=== PATIENT | male | born 1955 | race Caucasian/White ===

== ENCOUNTER → 2018-10-21 14:15 | Outpatient (CLI) | payer OTHER, SELFPAY ==
[2018-10-21 14:31] LABS: Add Manual Diff / Slide Review NO; Basophils Absolute Auto 0 /uL (0-100); Basophils Percent Auto 0.6 % (0-2); Eosinophils Absolute Auto 200 /uL (0-450); Eosinophils Percent Auto 2.4 % (2-4); Hematocrit 45.9 % (41-53); Hemoglobin 15.4 g/dL (13.5-17.5); Lymphocytes Absolute Auto 2100 /uL (1100-4500); Mean Corpuscular HGB Conc 33.5 % (30-36); Mean Corpuscular Hemoglobin 31.4 PG (26-34); Mean Corpuscular Volume 93.8 fL (80-100); Monocytes Absolute Auto 500 /uL (0-900); Monocytes Percent Auto 5.9 % (3-14); Neutrophils Absolute Auto 5500 /uL (1500-7000); Neutrophils Percent Auto 66.1 % (50-75); Platelet Count 247 X10^3/uL (150-400); Red Blood Cell Count 4.89 X10^6/uL (4.5-5.9); Red Cell Distribution Width 13.9 % (11.6-14.8); White Blood Cell Count 8.2 X10^3/uL (4.5-11.0)
[2018-10-21 14:44] LABS: Alanine Aminotransferase 31 IU/L (21-72); Albumin 4.9 g/dL (3.5-5.0); Albumin Globulin Ratio 1.4 (1.0-2.8); Alkaline Phosphatase 55 U/L (38-126); Aspartate Aminotransferase 23 IU/L (17-59); BUN Creatinine Ratio 17.3 (6-22); Bilirubin Total 0.7 mg/dL (0.2-1.3); Blood Urea Nitrogen 19 mg/dL (9-20); Calcium 9.5 mg/dL (8.4-10.2); Carbon Dioxide 30 mmol/L (22-32); Chloride 101 mmol/L (98-107); Cholesterol 198 mg/dL (140-199); Estimated Glomerular Filt Rate > 60.0 mL/min (>60); Globulin 3.4 g/dL (1.7-4.1); Glucose 101 mg/dL (80-110); HDL Cholesterol 49 mg/dL (40-60); HEMOLYSIS < 15 (0-50); LDL Cholesterol Calculated 131 mg/dL (<100); Potassium 4.3 mmol/L (3.4-5.1); Sodium 141 mmol/L (137-145); Total Protein 8.3 g/dL (6.3-8.2); Triglycerides 91 mg/dL (35-150)
[2018-10-21 16:46] LABS: Hep C Virus Ab w/Reflex Quant NEGATIVE s/c (NEGATIVE)
== END ==
PROVIDERS: PCP Family Medicine; Visit Provider Family Medicine
DX: Z11.59 Encounter for screening for other viral diseases (principal); Z12.5 Encounter for screening for malignant neoplasm of prostate; Z13.220 Encounter for screening for lipoid disorders
CPT/HCPCS: 36415; 80053; 80061; 84153; 85025; 86803

== ENCOUNTER → 2020-05-20 11:48 | Outpatient (CLI) | payer OTHER, SELFPAY ==
[2020-05-21 20:41] LABS: COVID19 Sendout Not Detected (Not Detect)
== END ==
PROVIDERS: PCP Family Medicine; Visit Provider Physician Assistant
DX: Z11.59 Encounter for screening for other viral diseases (principal)
CPT/HCPCS: 87635

== ENCOUNTER → 2020-12-28 14:59 | Outpatient (ROUT) | payer OTHER, SELFPAY ==
[2020-12-28 15:47] LABS: Add Manual Diff / Slide Review NO; Basophils Absolute Auto 0 /uL (0-100); Basophils Percent Auto 0.6 % (0-2); Eosinophils Absolute Auto 200 /uL (0-450); Eosinophils Percent Auto 2.3 % (2-4); Hematocrit 48.2 % (41-53); Hemoglobin 16.4 g/dL (13.5-17.5); Lymphocytes Absolute Auto 1900 /uL (1100-4500); Lymphocytes Percent Auto 24.8 % (25-40); Mean Corpuscular HGB Conc 34.1 % (30-36); Mean Corpuscular Hemoglobin 31.6 PG (26-34); Mean Corpuscular Volume 92.7 fL (80-100); Monocytes Absolute Auto 700 /uL (0-900); Monocytes Percent Auto 8.5 % (3-14); Neutrophils Absolute Auto 5000 /uL (1500-7000); Neutrophils Percent Auto 63.8 % (50-75); Platelet Count 251 X10^3/uL (150-400); Red Cell Distribution Width 13.9 % (11.6-14.8); White Blood Cell Count 7.8 X10^3/uL (4.5-11.0)
[2020-12-28 16:18] LABS: Alanine Aminotransferase 33 IU/L (<50); Albumin 4.9 g/dL (3.5-5.0); Albumin Globulin Ratio 1.5 (1.0-2.8); Alkaline Phosphatase 66 U/L (38-126); Aspartate Aminotransferase 32 IU/L (17-59); BUN Creatinine Ratio 20.4 (6-22); Bilirubin Total 0.9 mg/dL (0.2-1.3); Blood Urea Nitrogen 21 mg/dL (9-20); Calcium 10.3 mg/dL (8.4-10.2); Carbon Dioxide 28 mmol/L (22-32); Chloride 97 mmol/L (98-107); Cholesterol 238 mg/dL (140-199); Estimated Glomerular Filt Rate > 60.0 mL/min (>60); Globulin 3.3 g/dL (1.7-4.1); Glucose 107 mg/dL (80-110); HDL Cholesterol 60 mg/dL (40-60); HEMOLYSIS < 15 (0-50); LDL Cholesterol Calculated 153 mg/dL (<100); Potassium 4.3 mmol/L (3.4-5.1); Sodium 136 mmol/L (137-145); Total Protein 8.2 g/dL (6.3-8.2); Triglycerides 125 mg/dL (35-150)
[2020-12-28 16:51] LABS: Prostate Specific Antigen 3.84 ng/mL (0.10-4.00)
== END ==
PROVIDERS: Visit Provider Internal Medicine
DX: Z00.00 Encounter for general adult medical examination without abnormal findings (principal); R53.83 Other fatigue
CPT/HCPCS: 80053; 80061; 84153; 84443; 85025

== ENCOUNTER → 2022-07-29 11:01 | Outpatient (CLI) | payer OTHER, SELFPAY ==
[2022-07-29 14:06] LABS: COVID19 -Nasal RAPID Negative (Negative)
== END ==
PROVIDERS: PCP Internal Medicine; Visit Provider Surgery
DX: Z20.822 Contact with and (suspected) exposure to COVID-19 (principal); Z01.812 Encounter for preprocedural laboratory examination
CPT/HCPCS: 87635; C9803

== ENCOUNTER 2022-07-30 12:38 | Day surgery (SDC) | payer OTHER, SELFPAY ==
--- NOTE | 2022-07-30 | PATH_ITS ---
[facility] Accession Number: [id number] . 01 Material submitted: . PART A: colon - ASCENDING COLON POLYP X2 PART B: rectum - RECTUM POLYP . 01 Diagnosis: A. Ascending Colon, Polyp x2, Biopsy: Tubular adenoma. Sessile serrated adenoma. . B. Rectum, Polyp, Biopsy: Hyperplastic polyp. MRV 08/05/2022 1226 Local . 01 Electronically signed: . Analilia Post MD, Pathologist NPI- [id number] . 01 Gross description: . Part A: ASCENDING COLON POLYP X2: Received in formalin are 2 fragment(s) of colon, soft tissue measuring 0.6 x 0.2 x 0.1 cm to 0.4 x 0.2 x 0.2 cm submitted entirely in 1 cassette(s) Part B: RECTUM POLYP: Received in formalin are 3 fragment(s) of colon, soft tissue measuring 0.8 x 0.5 x 0.1 cm to 0.4 x 0.2 x 0.1 cm submitted entirely in 1 cassette(s) /CPE 08/03/2022 0716 Local . 01 Pathologist provided ICD-10: D12.2 . 01 CPT . 807086, 820607 Specimen Comment: A courtesy copy of this report has been sent to [phone] Performed at: 01 [facility] [address] [place] [address], [place], [place] [id number] MD Femi Lan MD Phone: [phone]
[2022-07-30] MEDS: SODIUM CHLORIDE 0.9% 1,000 ML 150 ML IV (12:47)
[2022-07-30 13:01] VITALS: BP 128/78; PULSE 70; RESP 16; TEMP 36.3; O2SAT 97; BMI 23.7
--- NOTE | 2022-07-30 13:30 | PM.HP.1 ---
History of Present Illness History of Present Illness Date Patient Seen: 07/30/22 Time Patient Seen: 13:30 Chief complaint: VAC Narrative: The patient presents for colorectal screening. They have never had any previous examination for such. Brother has a history of ulcerative colitis and colon cancer. On further history denies any recent gastrointestinal symptoms. No nausea, vomiting, abdominal pain, loss of appetite, unexplained weight loss, change in bowel habits, diarrhea, constipation, melena, hematochezia, or bright red blood per rectum. Patient History Medical History (Updated 07/30/22 @ 13:31 by Aydin Coe MD) Achilles tendon tear Left shoulder pain Surgical History Previous back surgery Family & Social History Family History Grandfather CAD (coronary artery disease) Grandfather CAD (coronary artery disease) Brother No problems noted. Social History: household members spouse lives independently Yes Tobacco & Substance use: Smoking Status Never smoker alcohol intake current alcohol intake frequency a few times a month Meds Home Medications and Allergies Home Medications Medication Instructions Recorded Confirmed Type No Known Home Medications 07/30/22 07/30/22 History Allergies Allergy/AdvReac Type Severity Reaction Status Date / Time No Known Allergies Allergy Uncoded 07/30/22 12:48 Exam Vital Signs (past 8 hours): - 07/30/22 13:01 Temperature 97.4 F L Pulse Rate 70 Respiratory Rate 16 Blood Pressure 128/78 Pulse Oximetry 97 Oxygen Delivery Method Room Air Oxygen Delivery Method Room Air Narrative Exam Narrative: General adult male alert oriented no acute distress Chest nonlabored respiration Extremities warm well perfused Assessment & Plan Assessment and plan (1) Screening for colon cancer: Status: Acute Assessment & Plan narrative: The patient requires colorectal screening and colonoscopy is recommended. Technical details were discussed. Risks, benefits, alternatives explained. Risks including but not limited to myocardial infarction, aspiration, bleeding, pain, missed lesion, incomplete examination, need for further radiographic studies, colonic perforation, and need for major abdominal surgery were discussed. All questions were answered to their satisfaction, and they are in agreement with this plan. Time Spent With Patient Critical Care time: I spent a total of [] minutes of critical care time on this patient's care today; this time is exclusive of procedural time.
--- NOTE | 2022-07-30 13:59 | PM.OP.COLON ---
Operative Date/Time/Diagnoses Date of procedure: 07/30/22 Time of procedure: 13:59 Pre-op diagnosis: Family history of colon cancer Post-op diagnosis: same Procedure & Clinicians Study performed: Colonoscopy Same procedure as scheduled: Yes Indications: Family history of colon cancer Procedure Notes Procedure in detail: Medications: Conscious sedation using 8mg IV midazolam and 150mcg IV of fentanyl The history and physical was performed/updated and the patient is ASA class is 1. The procedure was discussed in detail with the patient. Potential risks complications including infection, bleeding, missed diagnosis, perforation, need for surgery, and were explained. Their questions were answered and informed consent was obtained. Patient was brought to the procedure room and placed standard monitoring equipment. The patient's vital signs were monitored continuously throughout the entire procedure. Prior to starting time-out was performed. The patient was placed in the left lateral recumbent position. Procedural sedation was administered. Examination began with a thorough inspection of the perianal area there was no evidence of fissures, fistulae, external hemorrhoids or cutaneous malignancy. The colonoscopy scope was then placed into the anal canal and was advanced to the cecum, which was identified by the ileocecal valve, the appendiceal orifice and the confluence of the taenia. The scope was then slowly withdrawn examining colon thoroughly in all directions, irrigating it of any residual stool. FINDINGS 1. Ascending colon-5 mm polyps x 2 removed with cold snare 2. Rectum 3 mm polyps removed with cold snare The patient tolerated the procedure well. They will be discharged once criteria are met. The prep was of good/excellent quality. The withdrawl time was 13 minutes. The sedation time was 30minutes. Specimen(s): other (ascending polyps x 2, rectal polyp ) Complications: none Impression: colonic polyps Post-procedure Recommendations: Will call with biopsy results Disposition: same day surgery
[2022-07-30] MEDS: MIDAZOLAM 5 MG/5 ML VIAL 8 MG IV (14:23)
[2022-07-30] MEDS: fentaNYL 100 MCG/2 ML INJ 150 MCG IV (14:23)
[2022-07-30 14:46] VITALS: BP 124/68; PULSE 68; RESP 13; TEMP 36.4; O2SAT 95
[2022-07-30 14:51] VITALS: BP 109/63; PULSE 66; RESP 13; O2SAT 96
[2022-07-30 14:56] VITALS: BP 126/62; PULSE 67; RESP 15; O2SAT 96
[2022-07-30 15:02] VITALS: BP 115/67; PULSE 65; RESP 16; TEMP 36.6; O2SAT 97
== END 2022-07-30 15:25 | disposition home or self-care (01) ==
PROVIDERS: PCP Internal Medicine; Referring Provider Surgery; Visit Provider Surgery
PROC: 0DJD8ZZ Inspection of Lower Intestinal Tract, Via Natural or Artificial Opening Endoscopic (ICD-10-PCS; CPT 45378; principal; 2022-07-30 13:45)
DX: Z12.11 Encounter for screening for malignant neoplasm of colon (principal); Z80.0 Family history of malignant neoplasm of digestive organs; D12.2 Benign neoplasm of ascending colon; K62.1 Rectal polyp
CPT/HCPCS: 45385; 99152; 99153; J2250; J3010

== ENCOUNTER → 2022-08-09 14:09 | Outpatient (CLI) | payer OTHER, SELFPAY ==
[2022-08-09 15:41] LABS: Hematocrit 43.7 % (41-53); Mean Corpuscular HGB Conc 34.2 % (30-36); Mean Corpuscular Volume 90.7 fL (80-100); Platelet Count 221 X10^3/uL (150-400); Red Blood Cell Count 4.82 X10^6/uL (4.5-5.9); Red Cell Distribution Width 13.9 % (11.6-14.8); White Blood Cell Count 7.5 X10^3/uL (4.5-11.0)
[2022-08-09 16:01] LABS: Alanine Aminotransferase 33 IU/L (<50); Albumin 4.3 g/dL (3.5-5.0); Albumin Globulin Ratio 1.4 (1.0-2.8); Alkaline Phosphatase 58 U/L (38-126); Aspartate Aminotransferase 27 IU/L (17-59); BUN Creatinine Ratio 15.5 (6-22); Bilirubin Total 0.7 mg/dL (0.2-1.3); Blood Urea Nitrogen 16 mg/dL (9-20); Calcium 9.4 mg/dL (8.4-10.2); Carbon Dioxide 34 mmol/L (22-32); Chloride 98 mmol/L (98-107); Cholesterol 226 mg/dL (140-199); Estimated Glomerular Filt Rate > 60 mL/min (>60); Globulin 3.1 g/dL (1.7-4.1); Glucose 94 mg/dL (80-110); HDL Cholesterol 53 mg/dL (40-60); HEMOLYSIS < 15 (0-50); LDL Cholesterol Calculated 153 mg/dL (<100); Potassium 5.5 mmol/L (3.4-5.1); Sodium 138 mmol/L (137-145); Total Protein 7.4 g/dL (6.3-8.2); Triglycerides 101 mg/dL (35-150)
[2022-08-09 16:28] LABS: TSH w/ Reflex to FT4 1.23 uIU/mL (0.47-4.68)
[2022-08-09 16:30] LABS: Prostate Specific Antigen 3.77 ng/mL (0.10-4.00)
== END ==
PROVIDERS: PCP Internal Medicine; Referring Provider Internal Medicine; Visit Provider Internal Medicine
DX: Z00.00 Encounter for general adult medical examination without abnormal findings (principal); E78.2 Mixed hyperlipidemia
CPT/HCPCS: 36415; 80053; 80061; 84153; 84443; 85027

== ENCOUNTER 2024-11-08 20:19 | Emergency (ER) | payer OTHER, SELFPAY ==
[2024-11-08 20:23] VITALS: BP 159/73; PULSE 70; RESP 18; TEMP 37.2; O2SAT 96; BMI 25.0
== END 2024-11-08 20:45 | disposition left against medical advice (07) ==
PROVIDERS: Emergency Provider Emergency Medicine; PCP Internal Medicine
DX: H53.8 Other visual disturbances (principal)
CPT/HCPCS: 99281

== ENCOUNTER → 2025-09-06 15:45 | Outpatient (CLI) | payer MEDICARE, OTHER, SELFPAY ==
[2025-09-06 17:10] LABS: Hematocrit 44.5 % (41-53); Hemoglobin 15.0 g/dL (13.5-17.5); Mean Corpuscular HGB Conc 33.9 % (30-36); Mean Corpuscular Hemoglobin 31.1 PG (26-34); Mean Corpuscular Volume 92.0 fL (80-100); Platelet Count 219 X10^3/uL (150-400)
[2025-09-06 17:37] LABS: Alanine Aminotransferase 33 IU/L (<50); Albumin 4.4 g/dL (3.5-5.0); Albumin Globulin Ratio 1.5 (1.0-2.8); Alkaline Phosphatase 67 U/L (38-126); Blood Urea Nitrogen 18 mg/dL (9-20); Calcium 9.5 mg/dL (8.4-10.2); Carbon Dioxide 29 mmol/L (22-32); Chloride 102 mmol/L (98-107); Cholesterol 173 mg/dL (140-199); Estimated Glomerular Filt Rate > 60 mL/min (>60); Globulin 2.9 g/dL (1.7-4.1); Glucose 100 mg/dL (70-99); HDL Cholesterol 51 mg/dL (40-60); HEMOLYSIS < 15 (0-50); Potassium 4.4 mmol/L (3.4-5.1); Sodium 138 mmol/L (137-145); Total Protein 7.3 g/dL (6.3-8.2); Triglycerides 201 mg/dL (35-150)
[2025-09-06 18:08] LABS: Prostate Specific Antigen 4.49 ng/mL (0.10-4.00); TSH w/ Reflex to FT4 1.97 uIU/mL (0.47-4.68)
== END ==
PROVIDERS: PCP Internal Medicine; Referring Provider Internal Medicine; Visit Provider Internal Medicine
DX: E78.2 Mixed hyperlipidemia (principal); N40.1 Benign prostatic hyperplasia with lower urinary tract symptoms; N13.8 Other obstructive and reflux uropathy; R53.83 Other fatigue
CPT/HCPCS: 36415; 80053; 80061; 84153; 84443; 85027

== ENCOUNTER → 2025-09-16 18:49 | Outpatient (CLI) | payer MEDICARE, OTHER, SELFPAY ==
--- NOTE | 2025-09-16 18:51 | DI.MRI.S_ITS ---
PROCEDURE: MR PELVIC PROSTATE PROTOCOL INDICATIONS: elevated PSA TECHNIQUE: Coronal HASTE, axial T1 FSE with fat saturation, 3-plane nonbreath-hold T2 FSE. After the administration of contrast, dynamic axial, delayed axial and coronal VIBE or 2-D FLASH with fat saturation through the pelvis. Diffusion weighted imaging and ADC was performed. COMPARISON: None. FINDINGS: Image quality: Diffusion weighted and dynamic contrast enhanced images are diagnostic. Prostate: Gland size is 4 x 3.3 by 4 cm; ellipsoid gland volume is 27.5 mL. PSA density is 0.16 Transitional zone heterogenous nodules are present, either well encapsulated or mostly encapsulated, compatible with PI-RADS 1 or 2 likely BPH nodules. A left apex posterolateral peripheral zone lesion is seen (02/17, 03/18) measuring 8 x 7 x 9 mm. DCE negative. DWI score 3. () T2 score 3. PI-RADS 3. Seminal vesicles are clear. No extracapsular disease identified Genitourinary system: Trabeculated urinary bladder usually from chronic obstruction. Bowel and peritoneum: No bowel obstruction. Colonic diverticula. No drainable abscess or ascites Nodes and vessels: No aneurysmal artery identified. There are no enlarged lymph nodes by size criteria. Soft tissues: Unremarkable pelvic wall Bones: No aggressive appearing osseous abnormality. IMPRESSION: PI-RADS 3 subcentimeter lesion is seen at the left apex peripheral zone. No extracapsular disease or seminal vesicle involvement. No pelvic lymphadenopathy by size criteria. No aggressive osseous abnormality. Dictated by: Darci Murry M.D. on 09/17/2025 at 6:31 Approved by: Darci Murry M.D. on 09/17/2025 at 6:38
== END ==
LOC: MRI 18:50
PROVIDERS: PCP Internal Medicine; Referring Provider Internal Medicine; Visit Provider Internal Medicine
DX: N42.9 Disorder of prostate, unspecified (principal); R97.20 Elevated prostate specific antigen [PSA]; N32.89 Other specified disorders of bladder; K57.90 Diverticulosis of intestine, part unspecified, without perforation or abscess without bleeding
CPT/HCPCS: 72197; A9579